=== PATIENT | male | born 1990 | race Caucasian/White ===

== ENCOUNTER 2019-05-19 02:25 | Emergency (ER) | payer SELFPAY ==
[~2019-05-19] VITALS: Ht 182.9 cm; Wt 81.8 kg
[2019-05-19 02:32] VITALS: TEMP 98.8
[2019-05-19 03:12] LABS: BASO % 0.5 % (0.0-2.0); EOS # 0.2 (0.0-0.7); EOS % 2.9 % (0-4.0); GRAN # 3.9 (1.4-6.5); GRAN % 60.1 % (42.2-75.2); HEMATOCRIT 44.8 % (42.0-52.0); HEMOGLOBIN 15.2 g/dl (13.5-18.0); LYMPH # 1.7 (1.2-3.4); MEAN CELL VOLUME 96 fl (80.0-100.0); MEAN CORPUSCULAR HEMOGLOBIN 32 pg (27.0-31.0); MEAN CORPUSCULAR HGB CONC 34 g/dl (33.0-37.0); MONO # 0.7 (0.1-0.6); MONO % 10.2 % (1.7-9.3); PLATELET COUNT 179 K/mm3 (130-400); RED BLOOD COUNT 4.69 M/mm3 (4.20-5.60); REDCELL DISTRIBUTION WIDTH-CV 11.9 % (11.5-14.5)
[2019-05-19 03:25] LABS: ACETAMINOPHEN < 10 ug/mL (10-30); ALANINE AMINOTRANSFERASE 9 U/L (21-72); ALBUMIN 4.2 gm/dL (3.5-5.0); ALKALINE PHOSPHATASE 61 U/L (50-136); ANION GAP 15 mmol/L (7-16); AST,SGOT 40 U/L (15-37); BILIRUBIN,TOTAL 0.4 mg/dL (0.0-1.0); BLOOD UREA NITROGEN 10 mg/dL (9-20); CALCIUM 8.8 mg/dL (8.4-10.2); CARBON DIOXIDE 21 mmol/L (22-30); CHLORIDE 109 mmol/L (98-107); CREATININE, serum 0.76 (0.66-1.25); GLUCOSE 83 mg/dL (74-106); POTASSIUM 3.8 mmol/L (3.4-5.0); SALICYLATE < 1.0 mg/dL; SODIUM 145 mmol/L (137-145); TOTAL PROTEIN 7.8 gm/dL (6.4-8.2)
[2019-05-19 03:32] LABS: ALCOHOL(ethanol),MEDICAL 355 mg/dL
[2019-05-19 05:18] VITALS: BP 111/78; PULSE 105
== END 2019-05-19 05:25 | disposition home or self-care (01) ==
LOC: COL.ER 02:25
PROVIDERS: Emergency Medicine
DX: S09.90XA Unspecified injury of head, initial encounter (principal); S01.81XA Laceration without foreign body of other part of head, initial encounter; S50.812A Abrasion of left forearm, initial encounter; S50.811A Abrasion of right forearm, initial encounter; S80.212A Abrasion, left knee, initial encounter; S80.211A Abrasion, right knee, initial encounter; F10.129 Alcohol abuse with intoxication, unspecified; F17.210 Nicotine dependence, cigarettes, uncomplicated; Z23 Encounter for immunization; W19.XXXA Unspecified fall, initial encounter

== ENCOUNTER 2019-05-21 21:08 | Emergency (ER) | payer SELFPAY ==
[~2019-05-21] VITALS: Ht 182.9 cm; Wt 68.2 kg
[2019-05-21 21:19] VITALS: BP 142/81
[2019-05-22 00:12] VITALS: PULSE 64; TEMP 97.9
[2019-05-22] MEDS ORDERED: CEPHALEXIN500 M1 PO (00:23)
== END 2019-05-22 00:38 | disposition home or self-care (01) ==
LOC: COL.ER 21:08
DX: S01.81XA Laceration without foreign body of other part of head, initial encounter (principal); S50.812A Abrasion of left forearm, initial encounter; S80.212A Abrasion, left knee, initial encounter; S80.211A Abrasion, right knee, initial encounter; F12.90 Cannabis use, unspecified, uncomplicated; F17.210 Nicotine dependence, cigarettes, uncomplicated; W19.XXXA Unspecified fall, initial encounter

== ENCOUNTER 2019-05-26 08:05 | Emergency (ER) | payer SELFPAY ==
[~2019-05-26 08:05] MED LIST: CEPHALEXIN500 M1 PO
[2019-05-26 08:11] VITALS: BP 125/76; PULSE 77; TEMP 97.7
== END 2019-05-26 08:22 | disposition home or self-care (01) ==
LOC: COL.ER 08:05
DX: S01.81XD Laceration without foreign body of other part of head, subsequent encounter (principal); X58.XXXD Exposure to other specified factors, subsequent encounter